=== PATIENT | female | born 1950 | race Caucasian/White ===

== ENCOUNTER 2018-02-05 11:50 | Emergency (ER) | payer MEDICARE, OTHER ==
[~2018-02-05] VITALS: Ht 154.9 cm; Wt 92.1 kg
[~2018-02-05 11:50] MED LIST: ASPIR 8181 MG PO; ASPIRIN325 MG PO; LISINOPRIL10 MG PO; METOPROLOL SUCC25 MG PO; MOTRIN800 M1 PO; NORCO 5-325 TA1 EACH PO; PANTOPRAZOLE SO40 MG PO; PLAVIX75 MG PO; PRAVASTATIN SOD40 MG PO
[2018-02-05] MEDS ORDERED: NEOMYCIN/POLYMYX/BACITR OINT 0.9 GM PKT TOP ONE (12:45)
[2018-02-05] MEDS ORDERED: IBUPROFEN 200 MG TAB PO STA (13:00)
[2018-02-05] MEDS ORDERED: ONDANSETRON HCL 4 MG ORAL DISINTEGRATING TAB PO ONE (13:00)
[2018-02-05] MEDS ORDERED: HYDROCODONE/APAP 5MG-325MG TAB PO ONE (13:00)
[2018-02-05] MEDS ORDERED: TETANUS/DIPHTHERIA TOX ADULT 0.5 ML SYR IM STA (13:00)
--- NOTE | 2018-02-05 14:18 | Diagnostic Imaging Report ---
EXAMINATION: Head and cervical spine CT without contrast. HISTORY: Trauma, pain COMPARISON: None. TECHNIQUE: Multidetector axial images were obtained without contrast from the foramen magnum to the vertex and through the cervical spine. The images were reconstructed using brain and bone algorithms. Thin section brain images were reformatted into coronal and sagittal planes. Dose modulation, iterative reconstruction, and/or weight based adjustment of the mA/kV was utilized to reduce the radiation dose to as low as reasonably achievable. HEAD CT FINDINGS: Skull: No lytic or blastic lesions. No fractures. Parenchyma: Few scattered white matter hypodensities, most likely nonspecific, microvascular ischemic changes. No mass, hemorrhage or CT evidence of acute vascular insult. Brain volume: Normal for age. Ventricles: No hydrocephalus or displacement. Arteries: No density suggestive of thrombus. Dural sinuses: No abnormal density. Extra-axial spaces: No abnormal density. Foramen magnum: No mass, Chiari malformation, or basilar invagination. Sella: No obvious mass. Paranasal/mastoid sinuses: Imaged portions unremarkable. CERVICAL SPINE CT FINDINGS: Alignment:Normal alignment and lordosis. Soft tissues: Normal. Vertebrae: Normal height and density. No acute fracture, infection or neoplasm. Degenerative changes: C1-C2: Normal C2-C3: Prominent facet arthrosis on the left without stenosis C3-C4: Prominent facet arthrosis on the left, mild left foraminal stenosis C4-C5: Mild uncovertebral arthrosis without significant stenoses C5-C6: Uncovertebral and facet arthrosis. Moderate right and mild left foraminal stenosis. C6-C7: Disc osteophyte complex formation, bilateral uncovertebral and facet arthrosis. Mild spinal canal and moderately severe bilateral foraminal stenoses. C7-T1: Normal IMPRESSION: Head CT: 1. No acute postraumatic intracranial hemorrhage. 2. Mild chronic microvascular ischemic changes. Cervical spine CT: 1. No acute fractures or dislocations. 2. Chronic degenerative changes as described. Note: Acute post traumatic spinal cord, vascular or ligamentous injury cannot adequately be assessed with CT. Signed by: Dr. Pascale Eisenberg M.D. on 02/05/2018 2:15 PM
--- NOTE | 2018-02-05 14:42 | Diagnostic Imaging Report ---
EXAMINATION: CT of the lumbar spine HISTORY: Status post fall, low back pain COMPARISON: None available TECHNIQUE: Multidetector helical axial images were obtained without contrast from L1 to S1. The images were reconstructed using bone and soft tissue algorithms and were viewed in axial, sagittal, and coronal planes. Dose modulation, iterative reconstruction, and/or weight based adjustment of the mA/kV was utilized to reduce the radiation dose to as low as reasonably achievable. FINDINGS: Alignment: Normal alignment and lordosis. Vertebral bodies: Normal height and density. Paraspinal muscles: Normal. Intervertebral disks: L1-L2: Normal. L2-L3: Normal. L3-L4: Normal. L4-L5: Mild symmetric disc bulge, ligamenta flava thickening and bilateral facet arthroses. Minimal anterolisthesis. Mild spinal canal and bilateral foraminal stenosis. L5-S1: Bilateral facet arthrosis. No canal or foraminal stenoses.. IMPRESSION: 1. No acute lumbar spine fractures or dislocations. 2. Minimal likely chronic and degenerative anterolisthesis at L4-5. 3. Mild degenerative canal and foraminal stenosis at L4-L5. Note is made that acute post traumatic thecal sac/cauda equina, vascular or ligamentous injury cannot be assessed with CT. Signed by: Dr. Pascale Eisenberg M.D. on 02/05/2018 2:39 PM
[2018-02-05 16:09] VITALS: BP 143/85
== END 2018-02-05 16:24 | disposition home or self-care (01) ==
LOC: ER 11:50
DX: G89.11 Acute pain due to trauma (principal); R51 Headache; M54.2 Cervicalgia; M54.5 Low back pain; S51.812A Laceration without foreign body of left forearm, initial encounter; W18.39XA Other fall on same level, initial encounter; I10 Essential (primary) hypertension
CPT/HCPCS: 70450; 72125; 72131; 90471; 90714; 99283

== ENCOUNTER → 2021-03-19 | Outpatient (CLI) | payer MEDICARE, OTHER | LOC: US 13:05 | PROVIDERS: ATTEND Internal Medicine Nephrology | DX: N17.9 Acute kidney failure, unspecified (principal) | CPT/HCPCS: 76770; 76857 ==

== ENCOUNTER 2024-11-11 14:58 | Outpatient (RCR) | payer MEDICARE, OTHER ==
[~2024-11-11 14:58] MED LIST changes: +ALLERGY MEDICAT25 MG PO; +CALCITRIOL0.25 MCG PO; +JARDIANCE10 MG PO; +PROBIOTIC PO; +RAYALDEE30 MCG PO; +TYLENOL ARTHRITIS PO
== END 2024-11-14 ==
LOC: PT 14:58
PROVIDERS: ATTEND Physician Assistant
DX: Z47.1 Aftercare following joint replacement surgery (principal); Z96.652 Presence of left artificial knee joint

== ENCOUNTER 2024-12-12 08:00 | Outpatient (RCR) | payer MEDICARE, OTHER | END 2024-12-15 | LOC: PT 08:00 | PROVIDERS: ATTEND Physician Assistant | DX: Z47.1 Aftercare following joint replacement surgery (principal); Z96.652 Presence of left artificial knee joint ==

== ENCOUNTER 2025-01-09 11:00 | Outpatient (RCR) | payer MEDICARE, OTHER | END 2025-01-14 | LOC: PT 11:00 | PROVIDERS: ATTEND Physician Assistant | DX: Z47.1 Aftercare following joint replacement surgery (principal); Z96.652 Presence of left artificial knee joint ==